=== PATIENT | female | born 1980 | race Caucasian/White ===

== ENCOUNTER 2017-01-20 20:07 | Emergency (ER) | payer OTHER ==
[~2017-01-20] VITALS: Ht 180.3 cm; Wt 78.0 kg
[2017-01-20] MEDS ORDERED: ADDERALL 10 MG10 MG PO (21:16)
[2017-01-20] MEDS ORDERED: WELLBUTRIN100 MG PO (21:17)
== END 2017-01-20 21:02 | disposition short-term general hospital (02) ==
LOC: ER 20:07
PROC: 0C950ZZ Drainage of Upper Gingiva, Open Approach (ICD-10-PCS; principal; 2017-01-20)
DX: K05.219 Aggressive periodontitis, localized, unspecified severity (principal); Z88.8 Allergy status to other drugs, medicaments and biological substances